=== PATIENT | female | born 1980 | race Caucasian/White ===

== ENCOUNTER 2018-07-30 23:23 | Emergency (ER) | payer MEDICAID ==
[~2018-07-30] VITALS: Ht 162.6 cm; Wt 49.9 kg
[~2018-07-30 23:23] MED LIST: ABILIFY10 MG ORAL; WELLBUTRIN SR200 MG ORAL
[2018-07-30 23:25] VITALS: BP 100/59
[2018-07-30] MEDS ORDERED: LORazepam Inj 2mg/ml 1ml IV ONE (23:45)
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
[2018-07-31] MEDS ORDERED: WELLBUTRIN XL150 MG ORAL (04:07)
[2018-07-31] MEDS ORDERED: ABILIFY2 MG ORAL (04:07)
[2018-07-31 04:25] VITALS: BP 110/62
[2018-07-31 04:28] VITALS: BP 110/62
== END 2018-07-31 04:40 | disposition home or self-care (01) ==
LOC: EDBD 23:23 → EDSEX 23:23 → EMR 23:54
DX: E86.0 Dehydration (principal); R53.1 Weakness; Z59.0 Homelessness
CPT/HCPCS: 96361; 96374; 99284

== ENCOUNTER 2018-08-02 15:26 | Emergency (ER) | payer MEDICAID ==
[~2018-08-02] VITALS: Ht 165.1 cm; Wt 54.4 kg
[~2018-08-02 15:26] MED LIST changes: +ABILIFY2 MG ORAL; +WELLBUTRIN XL150 MG ORAL
[2018-08-02] MEDS ORDERED: TRAZODONE HCL150 MG ORAL (15:33)
[2018-08-02] MEDS ORDERED: BUSPAR10 MG ORAL (15:33)
[2018-08-02] MEDS ORDERED: MIRTAZAPINE15 MG ORAL (15:33)
[2018-08-02] MEDS ORDERED: Tetanus/Diptheria/Pertussis Vaccine 0.5ml Syr IM ONE (15:45)
[2018-08-02] MEDS ORDERED: Hydrogen Peroxide 473ml Bottle TOPIC ONE (15:45)
[2018-08-02] MEDS ORDERED: Tylenol #3 tab (300mg/30mg) PO ONE (15:45)
[2018-08-02] MEDS ORDERED: LET 3ml Soln TOPIC ONE (17:30)
[2018-08-02 17:41] VITALS: BP 90/49
[2018-08-02] MEDS ORDERED: TYLENOL EXTRA500 MG ORAL (18:15)
[2018-08-02 18:18] VITALS: BP 90/49
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
== END 2018-08-02 18:18 | disposition home or self-care (01) ==
LOC: EDBD 15:26 → EMR 16:01
DX: S01.01XA Laceration without foreign body of scalp, initial encounter (principal); Y04.2XXA Assault by strike against or bumped into by another person, initial encounter; Y92.9 Unspecified place or not applicable; Z23 Encounter for immunization; F20.9 Schizophrenia, unspecified; F31.9 Bipolar disorder, unspecified
CPT/HCPCS: 12001; 70450; 90471; 90715; 99284; Z7502

== ENCOUNTER 2018-08-05 18:09 | Emergency (ER) | payer MEDICAID ==
[~2018-08-05] VITALS: Ht 165.1 cm; Wt 49.9 kg
[~2018-08-05 18:09] MED LIST changes: +BUSPAR10 MG ORAL; +MIRTAZAPINE15 MG ORAL; +TRAZODONE HCL150 MG ORAL; +TYLENOL EXTRA500 MG ORAL
[2018-08-05 18:20] VITALS: BP 128/85
[2018-08-05] MEDS ORDERED: NKM (18:24)
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
[2018-08-05] MEDS ORDERED: Lidocaine HCl 2% Jelly 6ml Tube TOPIC ONE (18:45)
[2018-08-05] MEDS ORDERED: Acetaminophen 500mg (ES) tab ORAL ONE (18:45)
[2018-08-05] MEDS ORDERED: LD2JL30 TOPIC (19:10)
[2018-08-05] MEDS ORDERED: TYLENOL EXTRA500 MG ORAL (19:10)
--- NOTE | 2018-08-05 19:25 | Diagnostic Imaging Report ---
EXAM: XR Right Hand Complete, 3 or More Views CLINICAL HISTORY: PAIN TECHNIQUE: Frontal, lateral and oblique views of the right hand. COMPARISON: No relevant prior studies available. FINDINGS: Bones/joints: No acute fracture. Soft tissues: No radiodense foreign body. Soft tissue swelling. IMPRESSION: No acute fracture.
[2018-08-05 19:29] VITALS: BP 128/85
== END 2018-08-05 19:29 | disposition home or self-care (01) ==
LOC: EMR 19:20
DX: S63.502A Unspecified sprain of left wrist, initial encounter (principal); K14.8 Other diseases of tongue; R51 Headache
CPT/HCPCS: 99283

== ENCOUNTER 2018-08-24 13:41 | Emergency (ER) | payer MEDICAID ==
[~2018-08-24] VITALS: Ht 165.1 cm; Wt 49.9 kg
[~2018-08-24 13:41] MED LIST changes: +LD2JL30 TOPIC; +NKM
[2018-08-24 14:06] VITALS: BP 133/72
[2018-08-24] MEDS ORDERED: TOPIRAMATE25 MG ORAL (14:08)
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
[2018-08-24] MEDS ORDERED: TYLENOL EXTRA500 MG ORAL (14:47)
[2018-08-24 14:53] VITALS: BP 128/73
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
== END 2018-08-24 14:59 | disposition home or self-care (01) ==
LOC: EMR 14:33
DX: M25.562 Pain in left knee (principal); M25.561 Pain in right knee; F31.9 Bipolar disorder, unspecified; F20.9 Schizophrenia, unspecified
CPT/HCPCS: 99284